=== PATIENT | female | born 1970 | race American Indian/Alaskan Native ===

== ENCOUNTER 2020-06-07 21:11 | Emergency (ER) | payer BC ==
[2020-06-07 21:31] VITALS: BP 187/95
[2020-06-07] MEDS ORDERED: IBUPROFEN 800 MG TAB PO ONE (22:05)
[2020-06-07] MEDS ORDERED: AMOXICILLIN/K CLAV 875/125MG TAB PO ONE (22:05)
--- NOTE | 2020-06-07 23:12 | Cat Scan Report ---
CT head/brain wo con INDICATION: headache, ear infection, r/o mastoiditis. TECHNIQUE: Routine CT head. All CT scans at this location are performed using CT dose reduction for A LESLIE by means of automated exposure control. COMPARISON: None. FINDINGS: Intracranial: Triplett-white matter differentiation is maintained. No intracranial hemorrhage. No extra a xial collection. No hydrocephalus. No herniation. Sinuses: Paranasal sinuses and mastoid air cells are essentially clear. Orbits: Globes are intact. Calvarium: No acute fracture. IMPRESSION: 1. No otomastoiditis. No acute intracranial abnormality. Signer Name: Kiran Baker MD Signed: 06/07/2020 11:08 PM Workstation Name: [id number]
[2020-06-08 00:17] LABS: Basophils % (Auto) 0.4 % (0.0-1.8); Eosinophils # (Auto) 0.2 K/mm3 (0.0-0.4); Eosinophils % (Auto) 2.2 % (0.0-4.3); Hematocrit 34.8 % (30.3-42.9); Hemoglobin 11.3 gm/dl (10.1-14.3); Lymphocytes # (Auto) 4.1 K/mm3 (1.2-5.4); Lymphocytes % (Auto) 38.7 % (13.4-35.0); Mean Corpuscular HGB Conc 33 % (30-34); Mean Corpuscular Volume 82 fl (79-97); Monocytes # (Auto) 0.5 K/mm3 (0.0-0.8); Monocytes % (Auto) 4.9 % (0.0-7.3); Platelet Count 396 K/mm3 (140-440); Red Blood Count 4.25 M/mm3 (3.65-5.03); Red Cell Distribution Width 16.2 % (13.2-15.2)
[2020-06-08 00:34] LABS: Alanine Aminotransferase 6 units/L (7-56); Blood Urea Nitrogen 13 mg/dL (7-17); Hemolysis Index 18
--- NOTE | 2020-06-08 00:40 | Emergency Department Report ---
ED General Adult HPI - General Chief complaint: Earache Stated complaint: EAR PAIN PUI?: No Source: patient Mode of arrival: Ambulatory Limitations: No Limitations - History of Present Illness Initial comments: Patient is a 50-year-old -[place] female with history of hypertension and stroke who presents to the ED with complaint of persistent bilateral ear pain constantly for the last 2 months, worse in the last 3 days. Patient states that there is purulent discharge bilaterally draining from the bilateral ears, and that she also has pain in posterior auricular lymph nodes bilaterally. Patient also states that about 6 hours prior to arrival in the ED, she had brief episodes of chest pain that resolved after a few minutes. Patient denies shortness of breath, fever, chills, traumatic injury, headache, dizziness, lightheadedness, syncope, seizures, cough, sore throat, neck pain, palpitations or traumatic injury. MD Complaint: Bilateral ear pain, chest pain -: Gradual, month(s) (2) Location: face, neck, chest Radiation: non-radiation Severity scale (0 -10): 7 Quality: aching, sharp, constant Consistency: constant Improves with: none Worsens with: none Associated Symptoms: denies other symptoms, malaise. denies: confusion, chest pain, cough, diaphoresis, fever/chills, headaches, loss of appetite, nausea/vomiting, rash, shortness of breath, syncope, other Treatments Prior to Arrival: none - Related Data Previous Rx's Medication Instructions Recorded Last Taken Type Clindamycin [Clindamycin CAP] 300 mg PO Q6HR #80 capsule 06/08/20 Unknown Rx Ibuprofen [Motrin] 800 mg PO Q8HR PRN #30 tablet 06/08/20 Unknown Rx Lisinopril/Hydrochlorothiazide 1 tab PO QDAY #30 tab 06/08/20 Unknown Rx [Zestoretic 20-25 mg] Ofloxacin 0.3% [Floxin 0.3% Otic] 1 drop OT DAILY #5 ml 06/08/20 Unknown Rx predniSONE [Deltasone] 40 mg PO QDAY #10 tab 06/08/20 Unknown Rx Allergies Allergy/AdvReac Type Severity Reaction Status Date / Time metoclopramide [From Reglan] Allergy Hives Verified 06/07/20 21:20 prochlorperazine Allergy Hives Verified 06/07/20 21:20 [From Compazine] shellfish derived Allergy Hives Verified 06/07/20 21:20 ED Review of Systems ROS: Stated complaint: EAR PAIN Other details as noted in HPI Constitutional: denies: chills, fever Eyes: denies: eye pain, eye discharge, vision change ENT: ear pain (Bilateral ear) Respiratory: denies: cough, shortness of breath, SOB with exertion, SOB at rest, wheezing Cardiovascular: chest pain. denies: palpitations Endocrine: no symptoms reported Gastrointestinal: denies: abdominal pain, nausea, diarrhea Genitourinary: denies: urgency, dysuria, discharge Musculoskeletal: denies: back pain, joint swelling, arthralgia Skin: denies: rash, lesions Neurological: denies: headache, weakness, paresthesias Psychiatric: denies: anxiety, depression Hematological/Lymphatic: denies: easy bleeding, easy bruising ED Past Medical Hx - Past Medical History Hx Hypertension: Yes Hx CVA: Yes (2019) Hx Asthma: Yes - Surgical History Past Surgical History?: Yes Additional Surgical History: tubal, gastric sleeve - Social History Smoking Status: Never Smoker Substance Use Type: Alcohol - Medications Home Medications: Home Medications Medication Instructions Recorded Confirmed Last Taken Type Clindamycin [Clindamycin CAP] 300 mg PO Q6HR #80 capsule 06/08/20 Unknown Rx Ibuprofen [Motrin] 800 mg PO Q8HR PRN #30 tablet 06/08/20 Unknown Rx Lisinopril/Hydrochlorothiazide 1 tab PO QDAY #30 tab 06/08/20 Unknown Rx [Zestoretic 20-25 mg] Ofloxacin 0.3% [Floxin 0.3% Otic] 1 drop OT DAILY #5 ml 06/08/20 Unknown Rx predniSONE [Deltasone] 40 mg PO QDAY #10 tab 06/08/20 Unknown Rx ED Physical Exam - General Limitations: No Limitations General appearance: alert, in no apparent distress - Head Head exam: Present: atraumatic, normocephalic - Eye Eye exam: Present: normal appearance, PERRL, EOMI Pupils: Present: normal accommodation - ENT ENT exam: Present: normal orophraynx, mucous membranes moist, other (Bilateral mild erythematous bulging tympanic membranes with thick purulent discharge) - Neck Neck exam: Present: normal inspection, lymphadenopathy (Posterior auricular lymphadenopathy) - Respiratory Respiratory exam: Present: normal lung sounds bilaterally. Absent: respiratory distress, wheezes, rales, rhonchi, stridor, accessory muscle use - Cardiovascular Cardiovascular Exam: Present: regular rate, normal rhythm, normal heart sounds. Absent: systolic murmur, diastolic murmur, rubs, gallop - GI/Abdominal GI/Abdominal exam: Present: soft, normal bowel sounds. Absent: distended, tenderness, guarding - Extremities Exam Extremities exam: Present: normal inspection, full ROM, normal capillary refill. Absent: tenderness, pedal edema, joint swelling, calf tenderness - Back Exam Back exam: Present: normal inspection, full ROM. Absent: tenderness, CVA tenderness (R), CVA tenderness (L) - Neurological Exam Neurological exam: Present: alert, oriented X3, CN II-XII intact, normal gait, reflexes normal - Psychiatric Psychiatric exam: Present: normal affect, normal mood - Skin Skin exam: Present: warm, dry, intact, normal color. Absent: rash ED Course Vital Signs 06/07/20 21:30 Temperature 98.5 F Pulse Rate 64 Respiratory 18 Rate Blood Pressure 187/95 [Left] O2 Sat by Pulse 98 Oximetry ED Medical Decision Making - Lab Data Result diagrams: 06/07/20 23:36 06/07/20 23:36 - Radiology Data Findings [facility] [address] [place] [address] Cat Scan Report Signed Patient: JARROD LOVE MR#: [id number] : 1970 Acct:[id number] Age/Sex: 50 / F ADM Date: 06/07/20 Loc: ED Attending Dr: Ordering Physician: OTIS JERRY Date of Service: 06/07/20 Procedure(s): CT head/brain wo con Accession Number(s): [id number] cc: OTIS JERRY CT head/brain wo con INDICATION: headache, ear infection, r/o mastoiditis. TECHNIQUE: Routine CT head. All CT scans at this location are performed using CT dose reduction for ALARA by means of automated exposure control. COMPARISON: None. FINDINGS: Intracranial: Triplett-white matter differentiation is maintained. No intracranial hemorrhage. No extra axial collection. No hydrocephalus. No herniation. Sinuses: Paranasal sinuses and mastoid air cells are essentially clear. Orbits: Globes are intact. Calvarium: No acute fracture. IMPRESSION: 1. No otomastoiditis. No acute intracranial abnormality. Signer Name: Kiran Baker MD Signed: 06/07/2020 11:08 PM Workstation Name: [id number] Transcribed By: NIRALI Dictated By: Kiran Baker MD Electronically Authenticated By: Kiran Baker MD Signed Date/Time: 06/07/202307 DD/ 06 TD/TT: - Medical Decision Making This is a 50-year-old -[place] female with history of hypertension and stroke who presents to the ED with complaint of persistent bilateral ear pain constantly for the last 2 months, worse in the last 3 days. Patient states that there is purulent discharge bilaterally draining from the bilateral ears, and that she also has pain in posterior auricular lymph nodes bilaterally. Patient also states that about 6 hours prior to arrival in the ED, she had brief episodes of chest pain that resolved after a few minutes. In the ED, patient is alert and oriented x3 and is not in distress. Patient was treated for pain in the ED and also given initial oral antibiotics. Head CT scan without contrast showed no acute intracranial abnormalities or hemorrhage and no sign of otomastoiditis. On reevaluation, patient's pain is well controlled medications. Patient was discharged home on medications and advised to follow-up with her primary care physician in 7 to 10 days for reevaluation. Patient was also given a referral to the ENT physician Dr. Tellez for further evaluation. Patient was advised return to the ED immediately if symptoms get worse. - Differential Diagnosis Otitis media; Lymphadenopathy; Mastoiditis; anxiety; ACS Critical care attestation.: If time is entered above; I have spent that time in minutes in the direct care of this critically ill patient, excluding procedure time. ED Disposition Clinical Impression: Acute otitis media with effusion of both ears, Lymphadenopathy, Uncontrolled hypertension Disposition: - TO HOME OR SELFCARE Is pt being admited?: No Does the pt Need Aspirin: No Condition: Stable Instructions: Ear Drops, Adult, [id number], Lymphadenopathy, Hypertension, Adult, [id number], Otitis Media, Adult, Otitis Media (ED), Hypertension (ED) Additional Instructions: Lab test results were reviewed and are all nonactionable. Head CT scan without contrast showed no acute intracranial abnormalities or hemorrhage or any sign of otomastoiditis. Therefore take medications with food, drink plenty of fluids and follow-up with the primary care physician in 7 to 10 days for reevaluation or return to the ED immediately if symptoms get worse. Consider following up with the ENT physician Dr. Tellez in 3 to 5 days for reevaluation. Contact his office to schedule a follow-up appointment. Prescriptions: Clindamycin [Clindamycin CAP] 300 mg PO Q6HR #80 capsule predniSONE [Deltasone] 40 mg PO QDAY #10 tab Ofloxacin 0.3% [Floxin 0.3% Otic] 1 drop OT DAILY #5 ml Ibuprofen [Motrin] 800 mg PO Q8HR PRN #30 tablet PRN Reason: Pain , Severe (7-10) Lisinopril/Hydrochlorothiazide [Zestoretic 20-25 mg] 1 tab PO QDAY #30 tab Referrals: SEMAJ SANDS MD [Primary Care Provider] - 3-5 Days BIGG TELLEZ MD [Staff Physician] - 3-5 Days Time of Disposition: 00:54 Print Language: IRISH
[2020-06-08 00:43] LABS: BUN/Creatinine Ratio 19
== END 2020-06-08 01:42 | disposition home or self-care (01) ==
LOC: ED 21:11
DX: H66.93 Otitis media, unspecified, bilateral (principal); R59.1 Generalized enlarged lymph nodes; I10 Essential (primary) hypertension; J45.909 Unspecified asthma, uncomplicated; Z86.73 Personal history of transient ischemic attack (TIA), and cerebral infarction without residual deficits; Z79.899 Other long term (current) drug therapy; Z91.013 Allergy to seafood; Z88.8 Allergy status to other drugs, medicaments and biological substances
CPT/HCPCS: 36415; 70450; 80053; 84484; 85025